=== PATIENT | female | born 1950 | race Caucasian/White ===

== ENCOUNTER 2019-11-07 09:59 | Outpatient (CLI) | payer MEDICARE, SELFPAY ==
--- NOTE | ~2019-11-07 | XR_ITS ---
XR lumbar spine 2-3V 11/07/2019 10:19 Indication: Radiculopathy. Procedure: 3 views lumbar spine Comparison: 08/12/2017 Findings: Vertebral body heights are maintained. There is disc narrowing and endplate degenerative ch eloise at L5-S1, unchanged. No evidence for spondylolysis or spondylolisthesis. There is atherosclerosis of the aorta. There is mild lower lumbar facet hypertrophy. Sacral foramen a re symmetric. Pedicles intact. Impression: 1: Stable mild-moderate lumbar spondylosis primarily involving L5-S1. Reviewed, dictated and finalized at location A. Impression: 1: Stable mild-moderate lumbar spondylosis primarily involving L5-S1.
== END 2019-11-07 10:00 | disposition home or self-care (01) ==
PROVIDERS: PCP Family Medicine
DX: M47.27 Other spondylosis with radiculopathy, lumbosacral region (principal); G89.4 Chronic pain syndrome; Z79.891 Long term (current) use of opiate analgesic; Z13.89 Encounter for screening for other disorder; Z51.81 Encounter for therapeutic drug level monitoring
CPT/HCPCS: 72100

== ENCOUNTER 2019-12-16 09:31 | Outpatient (CLI) | payer MEDICARE, SELFPAY ==
--- NOTE | 2019-12-16 11:00 | NEURO_ITS ---
Patient Number: [id number] Impression: # Complains of numbness of feet. # Distal neuropathy involving peroneal nerves. # Normal needle/EMG exam. # Clinical correlation recommended. Nerve Conduction Studies Anti Sensory Summary Table Stim Site NR Peak (ms) P-T Amp (?V) Site1 Site2 Delta-P (ms) Dist (cm) Lg (m/s) Left Sup Fibular Anti Sensory (Ant Lat Mall) 14 cm 4.8 8.6 14 cm Ant Lat Mall 4.8 16.0 33 Right Sup Fibular Anti Sensory (Ant Lat Mall) NO RESPONSE 14 cm NR 14 cm Ant Lat Mall 16.0 Left Sural Anti Sensory (Lat Mall) Calf 4.8 5.9 Calf Lat Mall 4.8 16.0 33 Right Sural Anti Sensory (Lat Mall) Calf 4.0 6.2 Calf Lat Mall 4.0 16.0 40 Motor Summary Table Stim Site NR Onset (ms) O-P Amp (mV) Site1 Site2 Delta-0 (ms) Dist (cm) Lg (m/s) Left Peroneal Motor (Vastus Med) Ankle 6.5 2.0 Popit Ankle 7.9 35.0 44 Popit 14.4 1.7 Right Peroneal Motor (Vastus Med) Ankle 6.7 0.3 Popit Ankle 9.6 39.0 41 Popit 16.3 0.4 Left Tibial Motor (Abd Ford Brev) Ankle 5.4 1.6 Knee Ankle 9.8 41.0 42 Knee 15.2 1.1 Right Tibial Motor (Abd Ford Brev) Ankle 5.5 6.1 Knee Ankle 10.4 42.0 40 Knee 15.9 3.8 F Wave Studies NR F-Lat (ms) L-R F-Lat (ms) Left Peroneal (Mrkrs) (EDB) 55.65 1.07 Right Peroneal (Mrkrs) (EDB) 56.73 1.07 Left Tibial (Mrkrs) (Abd Hallucis) 58.79 0.74 Right Tibial (Mrkrs) (Abd Hallucis) 58.05 0.74 EMG Side Muscle Nerve Root Ins Act Fibs Amp Dur Recrt Comment Right AntTibialis Dp Br Fibular L4-5 Nml Nml Nml Nml Nml Right Gastroc Tibial S1-2 Nml Nml Nml Nml Nml Right Fibularis Long Sup Br Fibular L5-S1 Nml Nml Nml Nml Nml Right Flex Dig Long Tibial L5-S2 Nml Nml Nml Nml Nml Right Ext Dig Brev Dp Br Fibular L5, S1 Nml Nml Nml Nml Nml Left AntTibialis Dp Br Fibular L4-5 Nml Nml Nml Nml Nml Left Gastroc Tibial S1-2 Nml Nml Nml Nml Nml Left Fibularis Long Sup Br Fibular L5-S1 Nml Nml Nml Nml Nml Left Flex Dig Long Tibial L5-S2 Nml Nml Nml Nml Nml Left Ext Dig Brev Dp Br Fibular L5, S1 Nml Nml Nml Nml Nml Right QuadratusFem QuadFemoris L4-5, S1 Nml Nml Nml Nml Nml Left QuadratusFem QuadFemoris L4-5, S1 Nml Nml Nml Nml Nml MTDD
== END 2019-12-16 09:32 | disposition home or self-care (01) ==
PROVIDERS: PCP Family Medicine; Visit Provider Psychiatry & Neurology Neurology
DX: R20.2 Paresthesia of skin (principal)
CPT/HCPCS: 95886; 95910

== ENCOUNTER 2019-12-30 10:35 | Outpatient (CLI) | payer MEDICARE, SELFPAY ==
--- NOTE | ~2019-12-30 | CT_ITS ---
EXAMINATION: CT sinus wo con DATE: 12/30/2019 11:16 INDICATION: Chronic sinusitis. Congestion. TECHNIQUE: Computed tomography (CT) of the paranasal sinuses was performed without contrast. Iterativ e reconstruction technique was employed. Exam dose: 385.95 mGy-cm total exam DLP. COMPARISON: 01/05/2018 CT sinuses FINDINGS: There is rightward deviation of the nasal septum. The nasal turbinates are relatively symmetrically prominent in size. Bilateral middle nasal turbinate intralamellar cell. Bilateral middle nasal turbinate derick bullosa, left greater than right. There is a diminutive completely opacified right maxillary sinus, stable since 01/05/2018. The left maxillary sinus, the ethmoid air cells and bilateral frontal and sphenoid sinuses are patent . The left ostiomeatal unit is patent. IMPRESSION: Chronic small completely opacified right maxillary sinus, stable since 01/05/2018 Rightward bowing of the nasal septum Interlamellar cell and derick bullosa of the middle nasal turbinates, more prominent on the left Reviewed, dictated and finalized at Location A. Reviewed, dictated and finalized at location A. IMPRESSION: Chronic small completely opacified right maxillary sinus, stable s joshua 01/05/2018 Rightward bowing of the nasal septum Interlamellar cell and derick bullosa of the middle nasal turbinates, more prom inent on the left
== END 2019-12-30 10:36 | disposition home or self-care (01) ==
LOC: ANHIMG 10:38
PROVIDERS: PCP Family Medicine; Visit Provider Otolaryngology
DX: J32.9 Chronic sinusitis, unspecified (principal)
CPT/HCPCS: 70486

== ENCOUNTER 2020-02-04 10:40 | Outpatient (CLI) | payer MEDICARE, SELFPAY ==
--- NOTE | 2020-02-04 10:43 | ECG_ITS ---
Measurements Intervals [place] Rate: 70 P: 40 RI: 196 QRS: -25 QRSD: 84 T: 47 QT: 403 QTc: 437 Interpretive Statements SINUS RHYTHM POSSIBLE LEFT ATRIAL ENLARGEMENT DELAYED PRECORDIAL R/S TRANSITION BASELINE ARTIFACT- I, II, III, AVR, AVL, AVF BORDERLINE ECG Electronically Signed On 02-04-2020 11:07:06 CDT by Micky Jimenez D.O.
== END 2020-02-04 10:41 | disposition home or self-care (01) ==
PROVIDERS: PCP Family Medicine; Visit Provider Otolaryngology
DX: Z01.812 Encounter for preprocedural laboratory examination (principal); I10 Essential (primary) hypertension; R94.31 Abnormal electrocardiogram [ECG] [EKG]
CPT/HCPCS: 93005

== ENCOUNTER 2020-02-07 11:38 | Emergency (ER) | payer MEDICARE, SELFPAY ==
[2020-02-07 12:07] VITALS: BP 141/74; PULSE 87; RESP 16; TEMP 36.3; O2SAT 98
[2020-02-07 12:26] LABS: Basophils Absolute Auto 0.1 K/mm3 (0.0-0.1); Eosinophils Absolute Auto 0.2 K/mm3 (0-0.3); Eosinophils Percent Auto 2.6 % (0-4.4); Hematocrit 40.3 % (37.0-47.0); Hemoglobin 13.5 g/dL (12.0-15.0); Immature Granulocyte Absolute 0.03 K/mm3 (0.00-0.031); Immature Granulocyte Percent A 0.4 % (0-0.5); Lymphocytes Absolute Auto 2.21 K/mm3 (0.9-3.2); Lymphocytes Percent Auto 31.8 % (18.3-44.2); Mean Corpuscular HGB Conc 33.5 g/dl (32-36); Mean Corpuscular Hemoglobin 30.7 pg (26-34); Mean Corpuscular Volume 91.6 fl (80-100); Mean Platelet Volume 9.2 fl (7.4-10.4); Monocytes Absolute Auto 0.6 K/mm3 (0.1-0.6); Monocytes Percent Auto 8.6 % (2.6-8.5); Neutrophils Absolute Auto 3.9 K/mm3 (1.3-6.7); Neutrophils Percent Auto 55.6 % (45.5-73.1); Platelet Count Result 235 k/mm3 (150-375); Red Cell Distribution Width 11.9 % (11.5-14.5)
[2020-02-07 12:36] LABS: Prothrombin Time 12.7 Seconds (11.1-14.7)
[2020-02-07 12:37] LABS: Partial Thromboplastin Time 26.7 SECONDS (22.3-36.8)
[2020-02-07 12:39] LABS: Alanine Aminotransferase 28 U/L (4-35); Albumin Level 4.3 g/dL (3.5-5.1); Alkaline Phosphatase 59 U/L (38-126); Anion Gap 8 mmol/L (8-16); Aspartate Amino Transferase 38 U/L (14-36); Bilirubin,Total 0.8 mg/dL (0.2-1.3); Blood Urea Nitrogen 12 mg/dL (7-17); Calcium 9.3 mg/dL (8.4-10.2); Carbon Dioxide 24 mmol/L (22-30); Chloride 104 mmol/L (98-107); Estimated CRCL calculation 68 ml/min; Estimated Glomerular Filt Rate > 60; Glucose 105 mg/dL (65-105); Potassium 4.3 mmol/L (3.4-5.0); Sodium 136 mmol/L (137-145)
[2020-02-07 13:40] VITALS: BP 136/75; PULSE 76; RESP 16; TEMP 36.7; O2SAT 98
== END 2020-02-07 16:54 | disposition left against medical advice (07) ==
LOC: ANHED 18:04
PROVIDERS: Emergency Provider Emergency Medicine; PCP Family Medicine
DX: R19.5 Other fecal abnormalities (principal)
CPT/HCPCS: 36415; 80053; 85025; 85610; 85730; 86850; 86900; 86901; 99199

== ENCOUNTER 2020-03-13 00:41 | Outpatient (CLI) | payer MEDICARE, SELFPAY ==
[2020-03-13 16:30] LABS: SARS-CoV-2 RNA PCR Negative
== END 2020-03-13 00:42 | disposition home or self-care (01) ==
LOC: ANHCOVIDDT 00:41
PROVIDERS: Otolaryngology; PCP Family Medicine; Visit Provider Internal Medicine Gastroenterology
DX: Z01.812 Encounter for preprocedural laboratory examination (principal); Z20.828 Contact with and (suspected) exposure to other viral communicable diseases
CPT/HCPCS: 87635; C9803; U0003

== ENCOUNTER 2020-03-15 00:48 | Day surgery (SDC) | payer MEDICARE, SELFPAY ==
[2020-03-08 13:45] VITALS: BMI 27.7
--- NOTE | 2020-03-15 07:38 | WPDANESEPPF ---
Anes - Initial Pre Proc Eval Procedure: Operation Date: 03/15/20 09:30 Proposed Procedures p Esophagogastroduodenoscopy - Paulino Iniguez MD Date/Time: 03/15/20 07:38 Surgeon: Paulino Iniguez MD Pre Op Diagnosis: Dysphagia Patient Data Age: 70 Gender: F Height: 1.68 m Weight: 78 kg Allergies Allergy/AdvReac Type Severity Reaction Status Date / Time Sulfa (Sulfonamide Allergy Unknown Fatigued Verified 03/15/20 08:13 Antibiotics) tetracycline Allergy Unknown Rash Verified 03/15/20 08:13 Home Medications Medication Instructions Recorded Confirmed Type clonazepam 0.5 mg tablet 0.5 mg PO TID tablet 04/13/19 03/08/20 History cyclobenzaprine 5 mg tablet 5 mg PO BID PRN tablet 04/13/19 03/08/20 History omeprazole 40 mg capsule,delayed 40 mg PO DAILY 04/13/19 03/08/20 History release duloxetine 20 mg capsule,delayed 20 mg PO QPM cap 11/18/19 03/15/20 History release sprinkle levetiracetam 750 mg tablet 750 mg PO Q12H 11/18/19 03/08/20 History magnesium 250 mg PO DAILY 02/03/20 03/08/20 History metoprolol succinate 12.5 mg PO QPM 02/03/20 03/08/20 History gabapentin 300 mg capsule 600 mg PO TID #180 cap 02/15/20 03/08/20 Rx ECG: Date of Service: 02/04/20 Procedure(s): CA 12 lead EKG Accession Number(s): [id number] cc: ~ Measurements Intervals [place] Rate: 70 P: 40 NM: 196 QRS: -25 QRSD: 84 T: 47 QT: 403 QTc: 437 Interpretive Statements SINUS RHYTHM POSSIBLE LEFT ATRIAL ENLARGEMENT DELAYED PRECORDIAL R/S TRANSITION BASELINE ARTIFACT- I, II, III, AVR, AVL, AVF BORDERLINE ECG Electronically Signed On 02-04-2020 11:07:06 CDT by Micky Jimenez D.O. Dictated By: Micky Jimenez DO 02/04/20 1113 Patient hx anesthesia problems: none Family hx anesthesia problems: none PMFSH Past Medical History Medical History (Updated 03/15/20 @ 08:22 by Paulino Iniguez MD) Cervical spondylolysis Chronic neck and back pain Depression with anxiety Diastolic dysfunction Elevated lipids Essential (primary) hypertension GERD without esophagitis Hx pulmonary embolism Irritable bowel syndrome with diarrhea Lumbar spondylosis Peripheral polyneuropathy Seizures Urinary incontinence Surgical History Surgical History No pertinent past surgical history Family History Family History Sibling Patient's sister is in good health Hypertension Mother Carcinoma of colon Patient's mother is Family history of malignant neoplasm of breast in first degree relative Father Family history of lung cancer Patient's father is Other Cerebrovascular accident Family history of malignant neoplasm Social History Social History Smoking status: Never smoker Second hand tobacco smoke exposure: No Alcohol intake: never Substance use: never Substance use type: does not use Living arrangements: [facility] Gender identity (if verbalized by the patient): Female Spiritual care concerns: No Anes - Eval Final PreProcedure Day of Procedure 03/15/20 07:38 Patient weight: overweight Heart: regular rate and rhythm Lungs: clear to auscultation and normal air movement Airway: Mallampati scale class II Neurological: alert and oriented Last oral intake: >/= 8 hours ASA classification: III Emergent: no Anesthetic plan: proceed Anesthesia type and monitoring: general GIVS Informed Consent: The patient's anesthetic plan and its attendant risks and benefits were discussed with the patient/family/PO
--- NOTE | 2020-03-15 08:20 | WPDGICN ---
Assessment and Plan Assessment and plan (1) Occult blood in stools: Code(s): R19.5 - Other fecal abnormalities Status: Acute Assessment and Plan: Patient describes black melenic stools about a month ago. That lasted for a week. Stool confirmed to be Hemoccult-positive. Plan is for EGD to assess for potential bleeding size. Further recommendations subsequently. Patient currently on omeprazole for history of acid reflux. (2) Depression with anxiety: Code(s): F41.8 - Other specified anxiety disorders Status: Acute (3) Chronic sinusitis: Code(s): J32.9 - Chronic sinusitis, unspecified Status: Acute (4) GERD without esophagitis: Code(s): K21.9 - Gastro-esophageal reflux disease without esophagitis Status: Acute Assessment and Plan: Patient with a history of acid reflux. Has a history of an esophageal web identified 1 year ago. Patient currently on omeprazole 40 mg p.o. daily this will be continued. Further recommendations after endoscopy. Patient currently has additional complaints of dysphagia suggesting potential recurrent esophageal web formation. GI Consult Note Consult date/time: 03/15/20 08:20 HPI: Yessica Nelson is a 70 year old female Seen in evaluation at the request of Dr. Finn., patient reports change in bowel habits. Had blackish stools several weeks ago. Stool was found to be Hemoccult positive. Patient presents to today for EGD. Patient does have occasional difficulty swallowing with liquids food catching in mid substernal portion of the chest. She has a past medical history of esophageal web. Patient reports a recent trial of antibiotics for sinusitis. She is concerned about ongoing GI bleeding. She reports that food will pass slowly well swallowing. Her family history is noncontributory. In the past she has been treated for anxiety. Review of Systems Review of Systems: All systems reviewed & are unremarkable except as noted in HPI and below PMFSH Past Medical History Medical History (Updated 03/15/20 @ 08:22 by Paulino Iniguez MD) Cervical spondylolysis Chronic neck and back pain Depression with anxiety Diastolic dysfunction Elevated lipids Essential (primary) hypertension GERD without esophagitis Hx pulmonary embolism Irritable bowel syndrome with diarrhea Lumbar spondylosis Peripheral polyneuropathy Seizures Urinary incontinence Surgical History Surgical History No pertinent past surgical history Family History Family History Sibling Patient's sister is in good health Hypertension Mother Carcinoma of colon Patient's mother is Family history of malignant neoplasm of breast in first degree relative Father Family history of lung cancer Patient's father is Other Cerebrovascular accident Family history of malignant neoplasm Social History Social History Smoking status: Never smoker Second hand tobacco smoke exposure: No Alcohol intake: never Substance use: never Substance use type: does not use Living arrangements: [facility] Gender identity (if verbalized by the patient): Female Spiritual care concerns: No Meds Home Medications and Allergies Home Medications Medication Instructions Recorded Confirmed Type clonazepam 0.5 mg tablet 0.5 mg PO TID tablet 04/13/19 03/08/20 History cyclobenzaprine 5 mg tablet 5 mg PO BID PRN tablet 04/13/19 03/08/20 History omeprazole 40 mg capsule,delayed 40 mg PO DAILY 04/13/19 03/08/20 History release duloxetine 20 mg capsule,delayed 20 mg PO QPM cap 11/18/19 03/15/20 History release sprinkle levetiracetam 750 mg tablet 750 mg PO Q12H 11/18/19 03/08/20 History magnesium 250 mg PO DAILY 02/03/20 03/08/20 History
[2020-03-15 08:25] VITALS: BMI 29.2
[2020-03-15] MEDS: LACTATED RINGERS 1,000 ML 150 ML IV CONT (08:51)
[2020-03-15 08:52] VITALS: BP 126/78; PULSE 72; RESP 18; TEMP 36.1; O2SAT 98
[2020-03-15 09:11] VITALS: BP 121/59; PULSE 72; RESP 16; O2SAT 97
[2020-03-15 09:21] VITALS: BP 127/71; PULSE 72; RESP 18; O2SAT 98
[2020-03-15 09:31] VITALS: BP 123/65; PULSE 70; RESP 18; O2SAT 98
== END 2020-03-15 10:03 | disposition home or self-care (01) ==
PROVIDERS: PCP Internal Medicine; Visit Provider Internal Medicine Gastroenterology
PROC: 0DJ08ZZ Inspection of Upper Intestinal Tract, Via Natural or Artificial Opening Endoscopic (ICD-10-PCS; CPT 43235; principal; 2020-03-15 09:30)
DX: R19.5 Other fecal abnormalities (principal); K21.9 Gastro-esophageal reflux disease without esophagitis; K58.0 Irritable bowel syndrome with diarrhea; I11.0 Hypertensive heart disease with heart failure; I50.30 Unspecified diastolic (congestive) heart failure; E78.5 Hyperlipidemia, unspecified; G40.909 Epilepsy, unspecified, not intractable, without status epilepticus; G62.9 Polyneuropathy, unspecified; F41.8 Other specified anxiety disorders; J32.9 Chronic sinusitis, unspecified; M47.816 Spondylosis without myelopathy or radiculopathy, lumbar region; Z86.711 Personal history of pulmonary embolism
CPT/HCPCS: 43450; 43235; J2001; J2704; J7120

== ENCOUNTER 2020-04-03 02:28 | Outpatient (CLI) | payer MEDICARE, SELFPAY ==
[2020-04-03 21:23] LABS: SARS-CoV-2 RNA PCR Negative
== END 2020-04-03 02:29 | disposition home or self-care (01) ==
LOC: ANHCOVIDDT 02:29
PROVIDERS: PCP Internal Medicine; Visit Provider Internal Medicine Gastroenterology
DX: Z01.812 Encounter for preprocedural laboratory examination (principal); Z20.828 Contact with and (suspected) exposure to other viral communicable diseases
CPT/HCPCS: 87635; C9803; U0003

== ENCOUNTER 2020-04-06 01:34 | Day surgery (SDC) | payer MEDICARE, SELFPAY ==
[2020-03-30 13:07] VITALS: BMI 28.3
[2020-04-06 07:20] VITALS: BP 147/61; PULSE 83; RESP 16; TEMP 36.2; O2SAT 97
[2020-04-06] MEDS: LACTATED RINGERS 1,000 ML 150 ML IV CONT (07:23)
--- NOTE | 2020-04-06 08:04 | WPDANESEPPF ---
Anes - Initial Pre Proc Eval Procedure: Operation Date: 04/06/20 08:30 Proposed Procedures p Colonoscopy - Paulino Iniguez MD Date/Time: 04/06/20 08:04 Surgeon: Paulino Iniguez MD Pre Op Diagnosis: Occult GI Bleed/ Melena Patient Data Age: 70 Gender: F Height: 5 ft 6 in Weight: 78.7 kg Last Vital Signs Temp 97.2 F L 04/06/20 07:20 Pulse 83 04/06/20 07:20 Resp 16 04/06/20 07:20 BP 147/61 H 04/06/20 07:20 Pulse Ox 97 04/06/20 07:20 Allergies Allergy/AdvReac Type Severity Reaction Status Date / Time tetracycline Allergy Mild Rash Verified 04/06/20 07:18 Sulfa (Sulfonamide Allergy Unknown Fatigued Verified 04/06/20 07:18 Antibiotics) Home Medications Medication Instructions Recorded Confirmed Type clonazepam 0.5 mg tablet 0.5 mg PO TID tablet 04/13/19 03/30/20 History duloxetine 20 mg capsule,delayed 20 mg PO QPM cap 11/18/19 03/30/20 History release sprinkle levetiracetam 750 mg tablet 750 mg PO Q12H 11/18/19 03/30/20 History magnesium 250 mg PO DAILY 02/03/20 03/30/20 History metoprolol succinate 12.5 mg PO BID 02/03/20 03/30/20 History gabapentin 300 mg capsule 600 mg PO TID #180 cap 02/15/20 03/30/20 Rx cyclobenzaprine 5 mg tablet 5 mg PO TID PRN tablet 03/27/20 03/30/20 History omeprazole 40 mg capsule,delayed 40 mg PO DAILY #90 cap 03/30/20 03/30/20 Rx release rosuvastatin 10 mg tablet 10 mg PO DAILY #90 tablet 03/31/20 04/06/20 Rx Patient hx anesthesia problems: none Family hx anesthesia problems: none PMFSH Past Medical History Medical History (Updated 03/27/20 @ 15:25 by Quintin Tyson MD) Cervical spondylolysis Chronic neck and back pain Chronic obstructive pulmonary disease, unspecified Congestive heart failure, unspecified Crohn's disease, unspecified, without complications Depression with anxiety Diastolic dysfunction Elevated lipids Essential (primary) hypertension GERD without esophagitis Hx pulmonary embolism Hypertrophy of both inferior nasal turbinates Irritable bowel syndrome with diarrhea Lumbar spondylosis Nasal obstruction Nasal septal deviation Overweight (12/13/15) Oxygen dependent Peripheral polyneuropathy Seizures Urinary incontinence Surgical History Surgical History No pertinent past surgical history Family History Family History Sibling Patient's sister is in good health Hypertension Mother Carcinoma of colon Patient's mother is Family history of malignant neoplasm of breast in first degree relative Father Family history of lung cancer Patient's father is Other Cerebrovascular accident Family history of malignant neoplasm Social History Social History Smoking status: Unknown if ever smoked Second hand tobacco smoke exposure: No Alcohol intake: never Substance use: unknown Substance use type: unknown Gender identity (if verbalized by the patient): Female Spiritual care concerns: No Anes - Eval Final PreProcedure Day of Procedure 04/06/20 08:04 Patient weight: normal Heart: regular rate and rhythm Lungs: clear to auscultation Airway: Mallampati scale class III Neurological: alert and oriented Last oral intake: >/= 8 hours ASA classification: III Emergent: no Anesthetic plan: proceed Anesthesia type and monitoring: general GIVS and standard monitoring Informed Consent: The patient's anesthetic plan and its attendant risks and benefits were discussed with the patient/family/POA. Questions were solicited and answers provided to the satisfaction of the patient/family/POA.
--- NOTE | 2020-04-06 08:18 | WPDGICN ---
Assessment and Plan Assessment and plan (1) Occult blood in stools: Code(s): R19.5 - Other fecal abnormalities Status: Acute Assessment and Plan: Patient with recent occult positive stool. EGD was unremarkable. Plan is to proceed with colonoscopy at this time. Further recommendations will be given after endoscopy. (2) GERD without esophagitis: Code(s): K21.9 - Gastro-esophageal reflux disease without esophagitis Status: Acute GI Consult Note Consult date/time: 04/06/20 08:18 HPI: Yessica Nelson is a 70 year old female Presents for colonoscopy. Patient has a history of anxiety. Recently passed black melenic stools. These were confirmed be Hemoccult-positive. An EGD was recently performed which was unremarkable. Because of a prior history of esophageal web her esophagus was dilated empirically. Patient presents today for further evaluation of occult positive dark stools. Patient denies any abdominal pain. She has noticed no visible blood in her stools. She states in the past she has had some bright red blood associated with hard stools. Review of Systems Review of Systems: All systems reviewed & are unremarkable except as noted in HPI and below PMFSH Past Medical History Medical History (Updated 03/27/20 @ 15:25 by Quintin Tyson MD) Cervical spondylolysis Chronic neck and back pain Chronic obstructive pulmonary disease, unspecified Congestive heart failure, unspecified Crohn's disease, unspecified, without complications Depression with anxiety Diastolic dysfunction Elevated lipids Essential (primary) hypertension GERD without esophagitis Hx pulmonary embolism Hypertrophy of both inferior nasal turbinates Irritable bowel syndrome with diarrhea Lumbar spondylosis Nasal obstruction Nasal septal deviation Overweight (12/13/15) Oxygen dependent Peripheral polyneuropathy Seizures Urinary incontinence Surgical History Surgical History No pertinent past surgical history Family History Family History Sibling Patient's sister is in good health Hypertension Mother Carcinoma of colon Patient's mother is Family history of malignant neoplasm of breast in first degree relative Father Family history of lung cancer Patient's father is Other Cerebrovascular accident Family history of malignant neoplasm Social History Social History Smoking status: Unknown if ever smoked Second hand tobacco smoke exposure: No Alcohol intake: never Substance use: unknown Substance use type: unknown Gender identity (if verbalized by the patient): Female Spiritual care concerns: No Meds Home Medications and Allergies Home Medications Medication Instructions Recorded Confirmed Type clonazepam 0.5 mg tablet 0.5 mg PO TID tablet 04/13/19 03/30/20 History duloxetine 20 mg capsule,delayed 20 mg PO QPM cap 11/18/19 03/30/20 History release sprinkle levetiracetam 750 mg tablet 750 mg PO Q12H 11/18/19 03/30/20 History magnesium 250 mg PO DAILY 02/03/20 03/30/20 History metoprolol succinate 12.5 mg PO BID 02/03/20 03/30/20 History gabapentin 300 mg capsule 600 mg PO TID #180 cap 02/15/20 03/30/20 Rx cyclobenzaprine 5 mg tablet 5 mg PO TID PRN tablet 03/27/20 03/30/20 History omeprazole 40 mg capsule,delayed 40 mg PO DAILY #90 cap 03/30/20 03/30/20 Rx release rosuvastatin 10 mg tablet 10 mg PO DAILY #90 tablet 03/31/20 04/06/20 Rx Allergies Allergy/AdvReac Type Severity Reaction Status Date / Time tetracycline Allergy Mild Rash Verified 04/06/20 07:18 Sulfa (Sulfonamide Allergy Unknown Fatigued Verified 04/06/20 07:18 Antibiotics) Vital Signs Vital Signs - 24 hr 04/06/20 07:20 Temperature 97.2 F L Pulse Rate 83 Respirat
[2020-04-06 08:47] VITALS: BP 118/56; PULSE 61; RESP 16; O2SAT 100
[2020-04-06 08:57] VITALS: BP 118/58; PULSE 65; RESP 16; O2SAT 100
[2020-04-06 09:07] VITALS: BP 135/70; PULSE 61; RESP 16; O2SAT 99
== END 2020-04-06 09:25 | disposition home or self-care (01) ==
PROVIDERS: PCP Internal Medicine; Visit Provider Internal Medicine Gastroenterology
PROC: 0DJD8ZZ Inspection of Lower Intestinal Tract, Via Natural or Artificial Opening Endoscopic (ICD-10-PCS; CPT 45378; principal; 2020-04-06 08:30)
DX: R19.5 Other fecal abnormalities (principal); D12.8 Benign neoplasm of rectum; K57.30 Diverticulosis of large intestine without perforation or abscess without bleeding; K64.8 Other hemorrhoids; K21.9 Gastro-esophageal reflux disease without esophagitis; J44.9 Chronic obstructive pulmonary disease, unspecified; I11.0 Hypertensive heart disease with heart failure; I50.9 Heart failure, unspecified; E78.5 Hyperlipidemia, unspecified; K50.90 Crohn's disease, unspecified, without complications; F41.8 Other specified anxiety disorders; G62.9 Polyneuropathy, unspecified; M47.812 Spondylosis without myelopathy or radiculopathy, cervical region; G40.909 Epilepsy, unspecified, not intractable, without status epilepticus; Z86.711 Personal history of pulmonary embolism; Z99.81 Dependence on supplemental oxygen
CPT/HCPCS: 45385; 88305; J2704; J7120

== ENCOUNTER → 2020-08-03 11:08 | Outpatient (CLI) | payer MEDICARE, SELFPAY ==
--- NOTE | ~2020-08-03 | MR_ITS ---
EXAMINATION: MR lumbar spine wo con DATE: 08/03/2020 11:59 INDICATION: Low back pain. TECHNIQUE: Magnetic resonance imaging (MRI) of the lumbar spine was performed without intravenous con trast. Sequences included sagittal T2-weighted FSE, sagittal T2-weighted FS FSE, sagittal T1-weighted FSE, and axial T2-weighted FSE. COMPARISON: Lumbar spine MRI 05/09/2018 FINDINGS: There is 3 mm retrolisthesis of L5 on S1. Vertebral body heights are normal. There is sever lonnie decreased disc height at L5-S1 with endplate remodeling. The distal spinal cord signal intensity is normal. The conus medullaris is at L1-L2. The following disc levels are specifically discussed: L1-L2: The disc is bulging. There is mild bilateral facet joint osteoarthritis. There is mild left ne ural foraminal stenosis. There is mild central canal stenosis. L2-L3: The disc is bulging. There is moderate bilateral facet joint osteoarthritis. There is mild maldonado ateral neural foraminal stenosis. There is mild central canal stenosis. L3-L4: The disc is bulging and has an annular fissure. There is severe bilateral facet joint osteoart hritis. There is mild bilateral neural foraminal stenosis. There is mild central canal stenosis. L4-L5: The disc is bulging and has an annular fissure. There is moderate bilateral facet joint osteoa rthritis. There is mild bilateral neural foraminal stenosis. There is mild central canal stenosis. L5-S1: The disc is bulging with superimposed large right central extrusion with mass effect on the bi lateral S1 nerve roots in the lateral recesses. There is mild bilateral facet joint osteoarthritis. T here is mild bilateral neural foraminal stenosis. There is mild central canal stenosis. IMPRESSION: 1. Severe lower lumbar spondylosis, stable from 05/09/2018. Reviewed, dictated and finalized at location A.
== END ==
PROVIDERS: PCP Emergency Medicine; Visit Provider Physical Medicine & Rehabilitation Pain Medicine
DX: R51.9 Headache, unspecified (principal); M51.9 Unspecified thoracic, thoracolumbar and lumbosacral intervertebral disc disorder; M47.896 Other spondylosis, lumbar region
CPT/HCPCS: 72148

== ENCOUNTER → 2020-11-02 13:19 | Outpatient (CLI) | payer MEDICARE, SELFPAY ==
--- NOTE | ~2020-11-02 | XR_ITS ---
XR ankle LT min 3V DATE: 11/02/2020 13:52 INDICATION: Acute left ankle pain TECHNIQUE: 4 views COMPARISON: 10/26/2016 left ankle FINDINGS: Posterior tibial artery calcification. Diffuse osteopenia. No fracture or dislocation of the ankle or disruption of the ankle mortise. There is linear periosteal reaction along the mid and distal tibial shaft, possibly due to venous ins ufficiency or pulmonary osteoarthropathy. IMPRESSION: Diffuse osteopenia Mild linear periosteal reaction of the mid and distal tibial shaft; diffusion diagnosis includes veno us insufficiency, pulmonary osteoarthropathy No recent fracture or dislocation Reviewed, dictated and finalized at location A. IMPRESSION: Diffuse osteopenia Mild linear periosteal reaction of the mid and distal tibial shaft; diffusion d iagnosis includes venous insufficiency, pulmonary osteoarthropathy No recent fracture or dislocation
== END ==
PROVIDERS: PCP Internal Medicine; Visit Provider Internal Medicine
DX: M25.572 Pain in left ankle and joints of left foot (principal)
CPT/HCPCS: 73610

== ENCOUNTER → 2020-11-17 09:57 | Outpatient (CLI) | payer MEDICARE, SELFPAY ==
--- NOTE | ~2020-11-17 | CT_ITS ---
EXAMINATION: CT thoracic spine wo chon EXAM DATE: 11/17/2020 10:17 INDICATION: Thoracic back pain. TECHNIQUE: Spiral CT thoracic spine was performed without contrast. Axial, coronal and sagittal im ages were reviewed. The dose-length product (DLP) for this examination was 621.70 mGy-cm. The expos ure was tailored according to patient size (auto mA exposure control), and iterative reconstruction ( ASIR) was used as additional dose reduction technique. There is no prior study for comparison. FINDINGS: There is mild mid thoracic dextroscoliosis. There is mild to moderate diffuse mid and lower thoracic disc disease. The vertebral bodies are aligned in the AP dimension. There are no acute frac tures identified. Thoracic central canal widely patent. Evidence of mild to moderate bilateral neura l foraminal stenosis at T9-10, the most narrowed thoracic levels. There is mild to moderate diffuse t horacic facet arthropathy. There are no osteoblastic or osteolytic lesions identified. Paraspinal sof t tissue is unremarkable. IMPRESSION: 1. Mild to moderate mid and lower thoracic spondylosis. 2. Mild mid thoracic dextroscoliosis. 3. No acute findings. Reviewed, dictated and finalized at location A.
== END ==
PROVIDERS: PCP Internal Medicine; Visit Provider Physical Medicine & Rehabilitation Pain Medicine
DX: M47.814 Spondylosis without myelopathy or radiculopathy, thoracic region (principal); M41.9 Scoliosis, unspecified
CPT/HCPCS: 72128

== ENCOUNTER 2021-02-26 08:50 | Outpatient (CLI) | payer MEDICARE, SELFPAY ==
--- NOTE | 2021-02-26 09:00 | ECG_ITS ---
Measurements Intervals [place] Rate: 76 P: 43 UT: 186 QRS: -17 QRSD: 87 T: 45 QT: 397 QTc: 448 Interpretive Statements SINUS RHYTHM POSSIBLE LEFT ATRIAL ENLARGEMENT INCOMPLETE RIGHT BUNDLE BRANCH BLOCK LOW QRS VOLTAGE IN PRECORDIAL LEADS POOR R WAVE PROGRESSION, ANTERIOR LEADS BORDERLINE ECG Electronically Signed On 02-26-2021 14:31:29 CDT by Micky Jimenez D.O.
== END 2021-02-26 08:51 | disposition home or self-care (01) ==
LOC: ANHSURGERY 08:56
PROVIDERS: PCP Internal Medicine; Visit Provider Otolaryngology
DX: Z01.810 Encounter for preprocedural cardiovascular examination (principal); I10 Essential (primary) hypertension; I45.10 Unspecified right bundle-branch block
CPT/HCPCS: 93005

== ENCOUNTER 2021-03-02 00:16 | Day surgery (SDC) | payer MEDICARE, SELFPAY ==
[2021-02-19 13:24] VITALS: BMI 29.2
--- NOTE | 2021-03-01 08:02 | PM.IMHP ---
H&P: HPI History of Present Illness Date/Time: 03/01/21 08:02 Chief Complaint: septal deviation inferior turbinate hypertrophy nasal obstruction nasal congestion left-sided derick bullosa right-sided silent sinus syndrome /chronic maxillary sinusitis Narrative: patient presents for planned surgical procedures. No change in symptoms no change in history Review of Systems Constitutional: Constitutional: Denies fatigue, Denies fever(s) and Denies lethargy Eyes: Eyes: Denies blurry vision and Denies change in vision ENT: Reports as per HPI Cardiovascular: Cardiovascular: Denies chest pain Respiratory: Respiratory: Denies cough Endocrine: Endocrine: Denies fatigue Hematologic/Lymphatic: Hematologic/Lymphatic: Denies easy bleeding, Denies easy bruising and Denies lymphadenopathy Allergic/Immunologic: Allergic/Immunologic: Denies seasonal rhinorrhea [facility] Past Medical History Medical History Cervical spondylolysis Chronic neck and back pain Chronic obstructive pulmonary disease, unspecified Congestive heart failure, unspecified Crohn's disease, unspecified, without complications Depression with anxiety Diastolic dysfunction Elevated lipids Essential (primary) hypertension GERD without esophagitis Hx pulmonary embolism Hypertrophy of both inferior nasal turbinates Irritable bowel syndrome with diarrhea Lumbar spondylosis Nasal obstruction Nasal septal deviation Overweight (12/13/15) Oxygen dependent Peripheral polyneuropathy Seizures Urinary incontinence Surgical History Surgical History No pertinent past surgical history Family History Family History Sibling Patient's sister is in good health Hypertension Mother Carcinoma of colon Patient's mother is Family history of malignant neoplasm of breast in first degree relative Father Family history of lung cancer Patient's father is Other Cerebrovascular accident Family history of malignant neoplasm Social History Social History Smoking status: Never smoker Second hand tobacco smoke exposure: No Alcohol intake: never Substance use: never Additional living arrangements comments: PT HAS ARRANGED FOR HEALTH CARE AGENCY PERSON TO STAY WITH HER AFTER SURG Gender identity (if verbalized by the patient): Female Spiritual care concerns: No Meds Home Medications and Allergies Home Medications Medication Instructions Recorded Confirmed Type omeprazole 40 mg capsule,delayed 40 mg PO DAILY #90 cap 03/30/20 02/19/21 Rx release gabapentin 300 mg capsule 600 mg PO TID #540 cap 05/01/20 02/19/21 Rx duloxetine 20 mg capsule,delayed 30 mg PO QAM cap 10/26/20 02/19/21 History release sprinkle losartan 25 mg tablet 25 mg PO QPM tablet 10/26/20 02/19/21 History metoprolol succinate 25 mg 25 mg PO QAM tablet 10/26/20 02/19/21 History tablet,extended release 24 hr tizanidine 4 mg capsule 4 mg PO QPM 10/26/20 02/19/21 History azelastine 137 mcg (0.1 %) nasal 1 spray INTRANASAL Q12H #30 ml 01/23/21 02/19/21 Rx spray aerosol acetaminophen [Tylenol] 650 mg PO QAM 02/19/21 02/19/21 History aspirin 1,000 mg PO Q6H PRN 02/19/21 02/19/21 History diphenhydramine-acetaminophen 2 tablet PO HS PRN 02/19/21 02/19/21 History [Tylenol PM Extra Strength] ergocalciferol (vitamin D2) 1,250 mcg PO WEEKLY 02/19/21 02/19/21 History amoxicillin 875 mg-potassium 1 tablet PO BID #14 tablet 02/22/21 02/22/21 Rx clavulanate 125 mg tablet clonazepam 0.5 mg tablet 0.5 mg PO TID #270 tablet 02/26/21 Rx levetiracetam 500 mg tablet See Rx Instructions .ROUTE 02/26/21 Rx .COMPLEX #180 tablet Allergies Allergy/AdvReac Type Severity Reaction Status Date / Time tetracycline Allergy Mild Rash Verified
[2021-03-02] VITALS (8 sets, daily range): BP systolic 121–148; BP diastolic 57–66; PULSE 71–76; RESP 8–20; TEMP 36.3–36.6; O2SAT 97–100; BMI 30.3
--- NOTE | 2021-03-02 07:09 | WPDHPUPDATE1 ---
History and Physical Update Update Date/Time: 03/02/21 07:09 History and Physical has been reviewed, including an updated exam of the patient. There are NO changes in the patient's condition. Risks, benefits, and alternatives have been discussed and questions answered. Patient agrees to proceed with procedure.
--- NOTE | 2021-03-02 09:01 | WPDANESEPPF ---
Anes - Initial Pre Proc Eval Procedure: Operation Date: 03/02/21 09:45 Proposed Procedures p Image Guided Bilateral Inferior Turbinectomy, Right Maxillary Antrostomy, Left Resection Maria C Bullosa, - Shekhar Gustafson MD s Septoplasty - Shekhar Gustafson MD Date/Time: 03/02/21 09:01 Surgeon: Shekhar Gustafson MD Pre Op Diagnosis: septal deviations, chronic sinusitis Patient Data Age: 71 Gender: F Height: 1.68 m Weight: 82 kg Allergies Allergy/AdvReac Type Severity Reaction Status Date / Time tetracycline Allergy Mild Rash Verified 02/19/21 13:10 Sulfa (Sulfonamide AdvReac Unknown Fatigued Verified 02/19/21 13:10 Antibiotics) evolocumab AdvReac LEG Verified 02/19/21 13:12 [From Repatha Pushtronex] CRAMPS, PAIN Zzmggur-FSM-DfJ Reductase AdvReac LEG Verified 02/19/21 13:12 Inhibitor CRAMPS/PAIN [Niutaps-Wng-Zvr Reductase Inhibitor] Home Medications Medication Instructions Recorded Confirmed Type omeprazole 40 mg capsule,delayed 40 mg PO DAILY #90 cap 03/30/20 02/19/21 Rx release gabapentin 300 mg capsule 600 mg PO TID #540 cap 05/01/20 02/19/21 Rx duloxetine 20 mg capsule,delayed 30 mg PO QAM cap 10/26/20 02/19/21 History release sprinkle losartan 25 mg tablet 25 mg PO QPM tablet 10/26/20 02/19/21 History metoprolol succinate 25 mg 25 mg PO QAM tablet 10/26/20 02/19/21 History tablet,extended release 24 hr tizanidine 4 mg capsule 4 mg PO QPM 10/26/20 02/19/21 History azelastine 137 mcg (0.1 %) nasal 1 spray INTRANASAL Q12H #30 ml 01/23/21 02/19/21 Rx spray aerosol acetaminophen [Tylenol] 650 mg PO QAM 02/19/21 02/19/21 History aspirin 1,000 mg PO Q6H PRN 02/19/21 02/19/21 History diphenhydramine-acetaminophen 2 tablet PO HS PRN 02/19/21 02/19/21 History [Tylenol PM Extra Strength] ergocalciferol (vitamin D2) 1,250 mcg PO WEEKLY 02/19/21 02/19/21 History amoxicillin 875 mg-potassium 1 tablet PO BID #14 tablet 02/22/21 02/22/21 Rx clavulanate 125 mg tablet clonazepam 0.5 mg tablet 0.5 mg PO TID #270 tablet 02/26/21 Rx levetiracetam 500 mg tablet See Rx Instructions .ROUTE 02/26/21 Rx .COMPLEX #180 tablet Patient hx anesthesia problems: none Family hx anesthesia problems: none Results Review: All pre-operative results and documents have been reviewed as part of the pre-operative evaluation. [facility] Past Medical History Medical History Cervical spondylolysis Chronic neck and back pain Chronic obstructive pulmonary disease, unspecified Congestive heart failure, unspecified Crohn's disease, unspecified, without complications Depression with anxiety Diastolic dysfunction Elevated lipids Essential (primary) hypertension GERD without esophagitis Hx pulmonary embolism Hypertrophy of both inferior nasal turbinates Irritable bowel syndrome with diarrhea Lumbar spondylosis Nasal obstruction Nasal septal deviation Overweight (12/13/15) Oxygen dependent Peripheral polyneuropathy Seizures Urinary incontinence Surgical History Surgical History No pertinent past surgical history Family History Family History Sibling Patient's sister is in good health Hypertension Mother Carcinoma of colon Patient's mother is Family history of malignant neoplasm of breast in first degree relative Father Family history of lung cancer Patient's father is Other Cerebrovascular accident Family history of malignant neoplasm Social History Social History Smoking status: Never smoker Second hand tobacco smoke exposure: No Alcohol intake: never Substance use: never Living arrangements: assisted living Additional living arrangements comments: PT HAS ARRANGED FOR HEALTH CARE AGENCY PERSON TO STAY WITH HER AFTER SURG
[2021-03-02] MEDS: LACTATED RINGERS 1,000 ML 30 ML IV CONT (09:07)
[2021-03-02] MEDS: ACETAMINOPHEN 500 MG TABLET 1000 MG PO (09:18)
[2021-03-02] MEDS: ceFAZolin 2 GM/D5W 50 ML 2 GM/50 ML BAG IVPB (09:24)
[2021-03-02] MEDS: OXYMETAZOLINE HCL 0.05% NAS 15 ML BTL (*BKC) 1 SPRAY XX (10:16)
[2021-03-02] MEDS: LIDO 1%/EPINEPHRINE 1:100,000 50 ML VIAL 10 ML INFILTRATE (10:18)
--- NOTE | 2021-03-02 11:19 | W.PM.PROC2 ---
Procedure Note - Detailed Date of Procedure 03/02/21 Pre-op Diagnosis septal deviations, chronic sinusitis, right silent sinus syndrome, right chronic maxillary sinusitis, inferior turbinate hypertrophy, septal deviation, nasal obstruction, left derick bullosa Post-op Diagnosis same Procedure Performed Image guided right maxillary antrostomy endoscopic assisted septoplasty inferior turbinate submucosal resection with outfracture left-sided resection of derick bullosa Surgeon Shekhar Gustafson MD Customer Service Associate None Anesthesia general Indications See above Findings See procedure note, most significant finding right-sided purulence was and significant mucus in the right silent maxillary sinus Description of Procedure The patient was correctly identified and consent verified in the preoperative holding area. The patient was then brought to the operating room and a time-out performed. General anesthesia was induced and endotracheal tube was secured the patient's airway and taped to the left lower lip. Image guidance was initiated. Time-out performed. Afrin-soaked pledgets placed in bilateral nasal passages and allowed to sit for 5 minutes then removed patient prepped and draped for the aforementioned procedure 2nd time-out performed. You degree endoscope utilized along with image guidance to identify the aforementioned structures with findings as well as the subsequent findings. The patient had very obvious right-sided septal deviation inferior turbinate hypertrophy widened left middle turbinate and very sunken and uncinate on the right side. Local 1 cc injected of 1% 1 1% lidocaine with 1 100,000 parts epinephrine into the left anterior middle turbinate. Straight through cut sickle blade as well as microdebrider with quad cut blade utilized to perform resection of derick bleeding was excellent. Local injected total of 8 cc of the same formula and the submucoperichondrial plane the bilateral septum and inferior turbinates. Jose incision made on the left mucoperichondrial flap on the septum elevated with 7 Maori suction septum crossed over using caudal right-sided mucoperichondrial flap elevated with no perforation. Deviated septum removed with the blade Glenroy Brunnerton forceps well as Emiliana forceps. She had. The septum was very straight following septoplasty. Right-sided maxillary sinus entered with double ball tip probe following confirmation with image guidance. Backbiter straight through cut microdebrider utilized to complete a very wide right maxillary antrostomy purulence and mucus were noted in it. Hemostasis was excellent. Afrin-soaked pledgets were inserted the bilateral middle meati I for 5 minutes and then removed. Inferior turbinates were entered anteriorly using the 2 mm inferior turbinate blade and debrided the submucoperichondrial plate without perforation except the anterior necessary 1. They were then outfractured using the [place] elevator. Bilateral nasal passages were suctioned the posterior choana. Hemostasis was excellent. David incision closed with 3 interrupted 5 0 fast gut sutures. Santiago splints placed bilaterally after being trimmed and sutured anteriorly using a 3-0 nylon mattress suture. This marked end the procedure. Care the patient was turned over to Anesthesiology. Total blood loss 20 cc. I performed all dictated portions of the procedure. There were no immediate complications. Implants Santiago splints Estimated Blood Loss 20 Drains No Packing No Pathology none sent Complications No immediate complications Condition stable Disposition PACU
== END 2021-03-02 13:05 | disposition home or self-care (01) ==
PROVIDERS: PCP Internal Medicine; Visit Provider Otolaryngology
PROC: (CPT 30520; principal; 2021-03-02 09:45)
PROC: (CPT 30520; 2021-03-02 09:45)
DX: J34.2 Deviated nasal septum (principal); J32.9 Chronic sinusitis, unspecified; J34.89 Other specified disorders of nose and nasal sinuses; J32.0 Chronic maxillary sinusitis; J34.3 Hypertrophy of nasal turbinates; Z79.82 Long term (current) use of aspirin; J44.9 Chronic obstructive pulmonary disease, unspecified; M47.812 Spondylosis without myelopathy or radiculopathy, cervical region; K50.90 Crohn's disease, unspecified, without complications; F41.8 Other specified anxiety disorders; I10 Essential (primary) hypertension; K21.9 Gastro-esophageal reflux disease without esophagitis; Z86.711 Personal history of pulmonary embolism; M47.816 Spondylosis without myelopathy or radiculopathy, lumbar region; G62.9 Polyneuropathy, unspecified; R32 Unspecified urinary incontinence; E66.9 Obesity, unspecified; Z68.30 Body mass index [BMI] 30.0-30.9, adult
CPT/HCPCS: 30520; 30140; 31240; 61782; A9270; J0330; J0690; J1100; J2250; J2405; J3010; J7120

== ENCOUNTER → 2021-06-16 11:28 | Outpatient (CLI) | payer MEDICARE, SELFPAY ==
--- NOTE | ~2021-06-16 | MR_ITS ---
EXAMINATION: MR lumbar spine wo con DATE: 06/16/2021 12:31 INDICATION: Back pain or radiculopathy greater than 6 weeks. Degeneration of lumbar intervertebral di sc. TECHNIQUE: Magnetic resonance imaging (MRI) of the lumbar spine was performed without intravenous con trast. Sequences included sagittal T2-weighted FSE, sagittal T2-weighted FS FSE, sagittal T1-weighted FSE, and axial T2-weighted FSE. COMPARISON: Lumbar spine MRI 08/03/2020 FINDINGS: There is 3 mm retrolisthesis of L5 on S1. Vertebral body heights are normal. There is sever lonnie decreased disc height at L5-S1 with endplate remodeling. The distal spinal cord signal intensity is normal. The conus medullaris is at L2. The following disc levels are specifically discussed: L1-L2: The disc is bulging. There is moderate bilateral facet joint osteoarthritis. There is mild lef t neural foraminal stenosis. There is mild central canal stenosis. L2-L3: The disc is bulging and has an annular fissure. There is moderate right and severe left facet joint osteoarthritis. There is mild bilateral neural foraminal stenosis. There is mild central canal stenosis. L3-L4: The disc is bulging. There is moderate right and severe left facet joint osteoarthritis. There is mild bilateral neural foraminal stenosis. There is mild central canal stenosis. L4-L5: The disc is bulging and has an annular fissure. There is moderate right and severe left facet joint osteoarthritis. There is mild bilateral neural foraminal stenosis. There is mild central canal stenosis. L5-S1: The disc is bulging with superimposed extrusion from the right foraminal zone to the left suba rticular zone. There is mild bilateral facet joint osteoarthritis. There is moderate and mild left ne ural foraminal stenosis. There is mild central canal stenosis. There is severe stenosis of right late ral recess and moderate stenosis of left lateral recess. IMPRESSION: 1. Severe lower lumbar spondylosis, stable from 08/03/2020. Reviewed, dictated and finalized at location A. [facility] [employer]
== END ==
PROVIDERS: PCP Family Medicine; Visit Provider Family Medicine
DX: M51.36 Other intervertebral disc degeneration, lumbar region (principal); M47.896 Other spondylosis, lumbar region
CPT/HCPCS: 72148

== ENCOUNTER 2021-07-10 12:20 | Outpatient (CLI) | payer MEDICARE, SELFPAY ==
--- NOTE | 2021-07-17 10:11 | WPDNEUROLOGY ---
Neurology EEG Report General Information Date of Study: 07/10/21 TEST eeg DIAGNOSIS Seizures CONDITION OF RECORDING awake drowsy and sleep EEG NUMBER [id number] CLINICAL HISTORY patient reported she started having seizure at the age of 3 years. Were very well controlled up until recently. She had a petite Meraz last week. First 1 in 4 to 5 years. EEG DESCRIPTION Basic resting occipital frequency consists of large amount of well-organized low to medium voltage 9 to 11 hertz per 2nd alpha admixed with low-voltage 15 to 18 hertz per 2nd beta . Low-voltage beta activity seen diffusely admixed with waxing and waning posterior alpha rhythm during drowsiness. Bilateral symmetrical sleep activity seen during sleep. Hyperventilation not done. Photic stimulation produced normal drive. Non paroxysmal. Nonfocal. Nonlateralizing. IMPRESSION Normal record
== END 2021-07-10 12:21 | disposition home or self-care (01) ==
PROVIDERS: PCP Family Medicine; Visit Provider Psychiatry & Neurology Neurology
DX: G40.509 Epileptic seizures related to external causes, not intractable, without status epilepticus (principal)
CPT/HCPCS: 95816

== ENCOUNTER 2021-10-16 09:32 | Outpatient (CLI) | payer MEDICARE, SELFPAY ==
--- NOTE | 2021-10-16 11:00 | NEURO_ITS ---
Impression: # Complains of pain in lower extremities, right more than left. # Absent nerve responses in the right lower extremity with neurogenic needle/EMG exam. # Normal nerve conduction study with normal needle/EMG exam in the left lower extremity. # Clinical correlation recommended; Possible right sciatic neuropathy. Nerve Conduction Studies Anti Sensory Summary Table Stim Site NR Peak (ms) P-T Amp (?V) Site1 Site2 Delta-P (ms) Dist (cm) Lg (m/s) Left Sup Fibular Anti Sensory (Ant Lat Mall) 14 cm 3.8 20.7 14 cm Ant Lat Mall 3.8 16.0 42 Right Sup Fibular Anti Sensory (Ant Lat Mall) NO RESPONSE 14 cm NR 14 cm Ant Lat Mall 16.0 Left Sural Anti Sensory (Lat Mall) Calf 4.0 17.8 Calf Lat Mall 4.0 16.0 40 Right Sural Anti Sensory (Lat Mall) NO RESPONSE Calf NR Calf Lat Mall 16.0 Motor Summary Table Stim Site NR Onset (ms) O-P Amp (mV) Site1 Site2 Delta-0 (ms) Dist (cm) Lg (m/s) Left Peroneal Motor (Vastus Med) Ankle 4.8 2.8 Popit Ankle 9.0 41.0 46 Popit 13.8 2.2 Right Peroneal Motor (Vastus Med) NO RESPONSE Ankle NR Popit Ankle 0.0 Popit NR Left Tibial Motor (Abd Ford Brev) Ankle 4.8 1.9 Knee Ankle 10.0 42.0 42 Knee 14.8 0.9 Right Tibial Motor (Abd Ford Brev) NO RESPONSE Ankle NR Knee NR F Wave Studies NR F-Lat (ms) L-R F-Lat (ms) Left Peroneal (Mrkrs) (EDB) 55.78 Right Peroneal (Mrkrs) (EDB) DISPERSED RESPONSE NR Left Tibial (Mrkrs) (Abd Hallucis) 56.08 3.74 Right Tibial (Mrkrs) (Abd Hallucis) 59.82 3.74 EMG Side Muscle Nerve Root Ins Act Fibs Amp Dur Recrt Comment Right AntTibialis Dp Br Fibular L4-5 Nml Nml Nml >12ms Reduced Right Gastroc Tibial S1-2 Nml Nml Nml >12ms Reduced Right Fibularis Long Sup Br Fibular L5-S1 Nml Nml Nml >12ms Reduced Right Flex Dig Long Tibial L5-S2 Nml Nml Nml >12ms Reduced Right Ext Dig Brev Dp Br Fibular L5, S1 Nml Nml Nml >12ms Reduced Left AntTibialis Dp Br Fibular L4-5 Nml Nml Nml >12ms Reduced Left Gastroc Tibial S1-2 Nml Nml Nml >12ms Reduced Left Fibularis Long Sup Br Fibular L5-S1 Nml Nml Nml >12ms Reduced Left Flex Dig Long Tibial L5-S2 Nml Nml Nml >12ms Reduced Left Ext Dig Brev Dp Br Fibular L5, S1 Nml Nml Nml >12ms Reduced Right QuadratusFem QuadFemoris L4-5, S1 Nml Nml Nml Nml Nml Left QuadratusFem QuadFemoris L4-5, S1 Nml Nml Nml Nml Nml MTDD
== END 2021-10-16 09:33 | disposition home or self-care (01) ==
LOC: ANHNEURO 09:36
PROVIDERS: PCP Family Medicine; Visit Provider Psychiatry & Neurology Neurology
DX: M79.606 Pain in leg, unspecified (principal); R94.131 Abnormal electromyogram [EMG]
CPT/HCPCS: 95886; 95910

== ENCOUNTER 2022-05-09 10:48 | Emergency (ER) | payer MEDICARE, SELFPAY ==
--- NOTE | ~2022-05-09 | CT_ITS ---
CT Abdomen and Pelvis with contrast. History: Abdominal pain. Spiral CT of the abdomen and pelvis was performed after the administration of intravenous contrast. 1 00 cc of Omnipaque 350 was administered intravenously without complication. Dose reduction technique was used on this scan by utilizing automated exposure control and iterative reconstruction technique. The dose-length product (DLP) was 1050.35 mGy-cm. COMPARISON: 08/13/2018 Findings: Scans through the lung bases demonstrate mild atelectatic change. The liver, spleen, pancreas, gallbladder, adrenals and kidneys are within normal limits. No evidence of aortic aneurysm. No lymphadenopathy is seen. There is no evidence of bowel obstruction. There is no evidence to suggest acute appendicitis or dive rticulitis. Images through the pelvis were performed. Urinary bladder unremarkable. No adnexal mass evident. No a scites. No ascites is seen. Impression: No significant abnormalities seen. Reviewed, dictated and finalized at [facility]. ATOLOGY SPECIALIST Impression: No significant abnormalities seen.
[2022-05-09 11:09] VITALS: BP 121/47; PULSE 92; RESP 18; TEMP 36.7; O2SAT 98
--- NOTE | 2022-05-09 12:09 | ED.GENADULT ---
HPI - General Adult General Chief complaint: Neuro Symptoms/Deficit Stated complaint: unable to void or BM s/p spinal procedure Time Seen by Provider: 05/09/22 11:57 Source: RN notes reviewed History of Present Illness HPI narrative: Patient presents emergency department from home for constipation and urinary hesitancy. The patient states that her last bowel movement was 4 days ago on Friday the . She states that she has not had a bowel movement since that time she also states that she is able to urinate but states that she has to push harder to urinate and normally goes more frequently than she has been. She states that she had a spinal stimulator placed by Dr. Oconnor on May 06 she states she is had no urinary incontinence she states that she has chronic numbness in her legs from sciatica but denies any new numbness or weakness of the extremities she had called the office and was told to come to the emergency department for further evaluation she denies any fevers or chills she denies any abdominal pain nausea or vomiting Related Data Home Medications Medication Instructions Recorded Confirmed duloxetine 20 mg capsule,delayed 30 mg PO QAM 10/26/20 04/18/22 release sprinkle tizanidine 4 mg capsule 4 mg PO BID 02/04/22 04/18/22 buspirone 10 mg tablet 10 mg PO BID 02/22/22 04/18/22 Allergies Allergy/AdvReac Type Severity Reaction Status Date / Time tetracycline Allergy Mild Rash Verified 05/09/22 11:35 Sulfa (Sulfonamide AdvReac Unknown Fatigued Verified 05/09/22 11:35 Antibiotics) evolocumab AdvReac LEG Verified 05/09/22 11:35 [From Repatha Pushtronex] CRAMPS, PAIN [place]w-QWC-WwD Reductase AdvReac LEG Verified 05/09/22 11:35 Inhibitor CRAMPS/PAIN [Xufbggw-Vub-Dbi Reductase Inhibitor] Review of Systems Review of Systems: Gen.: Denies fevers or chills ENT: Denies congestion Respiratory: Denies shortness of breath or cough CV: Denies chest pain or palpitations GI: Denies abdominal pain nausea, emesis or diarrhea reports constipation see HPI Musculoskeletal: Denies back pain or muscle pain Neuro: Denies numbness, tingling, weakness or focal weakness Skin: Denies rash Except as documented, all other systems reviewed and negative PMFSH Past Medical History Medical History BMI 29.0-29.9,adult BMI 30.0-30.9,adult Cervical spondylolysis Chronic neck and back pain Chronic obstructive pulmonary disease, unspecified Congestive heart failure, unspecified COVID-19 Crohn's disease, unspecified, without complications Depression with anxiety Diarrhea Diastolic dysfunction Elevated lipids Essential (primary) hypertension GERD without esophagitis Hx pulmonary embolism Hypertrophy of both inferior nasal turbinates Irritable bowel syndrome with diarrhea Lumbar spondylosis Nasal obstruction Nasal septal deviation Overweight (12/13/15) Oxygen dependent Peripheral polyneuropathy Seizures Urinary incontinence Surgical History Surgical History No pertinent past surgical history Family History Family History Sibling Patient's sister is in good health Hypertension Mother Carcinoma of colon Patient's mother is Family history of malignant neoplasm of breast in first degree relative Alzheimer's disease Father Family history of lung cancer Patient's father is Other Cerebrovascular accident Family history of malignant neoplasm Social History Social History Smoking status: Never smoker Second hand tobacco smoke exposure: Yes Alcohol intake: never Substance use: never Substance use type: does not use 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
[2022-05-09 13:05] LABS: Basophils Percent Auto 0.4 % (0.2-1.2); Eosinophils Absolute Auto 0.2 K/mm3 (0-0.3); Eosinophils Percent Auto 2.6 % (0-4.4); Hematocrit 34.3 % (37.0-47.0); Hemoglobin 11.2 g/dL (12.0-15.0); Immature Granulocyte Absolute 0.02 K/mm3 (0.00-0.031); Immature Granulocyte Percent A 0.3 % (0-0.5); Lymphocytes Absolute Auto 1.56 K/mm3 (0.9-3.2); Lymphocytes Percent Auto 21.3 % (18.3-44.2); Mean Corpuscular HGB Conc 32.7 g/dl (32-36); Mean Corpuscular Hemoglobin 31.8 pg (26-34); Mean Corpuscular Volume 97.4 fl (80-100); Mean Platelet Volume 9.4 fl (7.4-10.4); Monocytes Percent Auto 13.6 % (2.6-8.5); Neutrophils Absolute Auto 4.5 K/mm3 (1.3-6.7); Neutrophils Percent Auto 61.8 % (45.5-73.1); Platelet Count Result 231 k/mm3 (150-375); Red Blood Count 3.52 M/mm3 (4.2-5.4); Red Cell Distribution Width 12.3 % (11.5-14.5); White Blood Count 7.3 K/mm3 (4.5-10.0)
[2022-05-09 13:11] LABS: Add Urine Microscopic? NO; Appearance Urine Clear (Clear); Bilirubin Urine Negative (Negative); Blood Urine Negative (Negative); Color Urine Light Yellow (Yellow); Glucose Urine UA Negative (Negative); Ketones Urine Negative (Negative); Leukocyte Esterase Ur Negative LEU/UL (Negative); Nitrate Urine Negative (Negative); Protein Urine Negative (Negative); Specific Grav Ur <= 1.005 (1.001-1.035); Urobilinogen Urine 0.2 mg/dL (<2.0); pH Urine 5.5 (5.0-9.0)
[2022-05-09 13:15] LABS: Alanine Aminotransferase 35 U/L (6-35); Alkaline Phosphatase 65 U/L (38-126); Anion Gap 7 mmol/L (8-16); Aspartate Amino Transferase 45 U/L (14-36); Bilirubin,Total 1.3 mg/dL (0.2-1.3); Blood Urea Nitrogen 19 mg/dL (7-17); Calcium 8.5 mg/dL (8.4-10.2); Carbon Dioxide 27 mmol/L (22-30); Chloride 100 mmol/L (98-107); Estimated CRCL calculation 60 ml/min; Estimated Glomerular Filt Rate > 60; Glucose 96 mg/dL (65-110); Potassium 4.1 mmol/L (3.4-5.0); Sodium 134 mmol/L (137-145)
[2022-05-09 13:49] LABS: Prothrombin Time 13.1 Seconds (11.1-14.7)
[2022-05-09 13:51] LABS: Partial Thromboplastin Time 33.8 SECONDS (22.3-36.8)
--- NOTE | 2022-05-09 16:24 | PCCCNOTE ---
Called by ED charge to assist with transportation, met w/ patient in room H2. She states that she lives at [place], in [place]. She got here today by van but that van shut down at 11am. She does not have any friends or family that can assist with transportation. Has had difficulty with a cab from [employer] before when she only had a certain amount of benitez and they would not accept a debit card. Called to [employer] they estimate 24.50. Advised to patient that the estimate was 24.50$ and but if goes beyond 30 dollars and they do not accept debit then have fact checker cab call [employer]. She is agreeable.
== END 2022-05-09 16:19 | disposition home or self-care (01) ==
PROVIDERS: Emergency Provider Emergency Medicine; PCP Family Medicine
DX: K59.00 Constipation, unspecified (principal); R39.11 Hesitancy of micturition; J44.9 Chronic obstructive pulmonary disease, unspecified; I50.9 Heart failure, unspecified; K50.90 Crohn's disease, unspecified, without complications; I11.0 Hypertensive heart disease with heart failure; E66.3 Overweight; Z68.29 Body mass index [BMI] 29.0-29.9, adult; G62.9 Polyneuropathy, unspecified; F41.8 Other specified anxiety disorders; Z86.16 Personal history of COVID-19; Z86.711 Personal history of pulmonary embolism; Z96.82 Presence of neurostimulator; Z77.22 Contact with and (suspected) exposure to environmental tobacco smoke (acute) (chronic)
CPT/HCPCS: 36415; 74177; 80053; 81003; 85025; 85610; 85730; 99284; Q9967

== ENCOUNTER 2022-11-01 09:11 | Outpatient (CLI) | payer MEDICARE, SELFPAY ==
--- NOTE | ~2022-11-01 | XR_ITS ---
EXAMINATION: XR small bowel follow through DATE: 11/01/2022 10:41 INDICATION: Diarrhea. TECHNIQUE: Oral contrast was administered, and a time course of radiographs of the abdomen was obtain ed. Fluoroscopy of the small bowel was performed. Fluoroscopy exposure time was 0.1 minutes. The tota l number of images was 9. COMPARISON: CT abdomen and pelvis 05/09/2022 FINDINGS: There is no abnormal mass or stricture. No dilated loops of bowel. Transit time from the stomach to p roximal colon was approximately 30 minutes. Electrodes overlie the spine. IMPRESSION: 1. Normal small bowel series. Reviewed, dictated and finalized at location A.
== END 2022-11-01 09:12 | disposition home or self-care (01) ==
PROVIDERS: PCP Internal Medicine; Visit Provider Nurse Practitioner Family
DX: R19.7 Diarrhea, unspecified (principal)
CPT/HCPCS: 74250

== ENCOUNTER 2023-02-13 00:13 | Day surgery (SDC) | payer MEDICARE, SELFPAY ==
[2023-02-13 08:56] VITALS: BP 151/60; PULSE 72; RESP 20; TEMP 35.6; O2SAT 98; BMI 28.8
--- NOTE | 2023-02-13 08:56 | PM.HPGS ---
History of Present Illness History of Present Illness Consent: Risks, benefits, and alternatives have been discussed and questions answered. Patient agrees to proceed with procedure. Chief complaint: dysphagia Narrative: Yessica Evans is a 73 year old female Presents today for for dysphagia. Food will catch in the mid substernal portion the chest. 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 Plan for EGD to assess more thoroughly. Additionally patient notes her diarrhea is improved on trial of Viberzi. She wishes to continue this. She was only taking samples previously. Review of Systems Review of Systems: Review of systems noncontributory. [facility] Past Medical History Medical History BMI 29.0-29.9,adult BMI 30.0-30.9,adult Cervical spondylolysis Chronic neck and back pain Chronic obstructive pulmonary disease, unspecified Congestive heart failure, unspecified COVID-19 Crohn's disease, unspecified, without complications Depression with anxiety Diarrhea Diastolic dysfunction Elevated lipids Essential (primary) hypertension GERD without esophagitis Hx pulmonary embolism Hypertrophy of both inferior nasal turbinates Irritable bowel syndrome with diarrhea Lumbar spondylosis Nasal obstruction Nasal septal deviation Overweight (12/13/15) Oxygen dependent Peripheral polyneuropathy Right upper quadrant pain Seizures Urinary incontinence Surgical History Surgical History No pertinent past surgical history Family History Family History Sibling Patient's sister is in good health Hypertension Mother Carcinoma of colon Patient's mother is Family history of malignant neoplasm of breast in first degree relative Alzheimer's disease Father Family history of lung cancer Patient's father is Other Cerebrovascular accident Family history of malignant neoplasm Social History Social History (Updated 01/09/23 @ 13:10 by Johanna Edmonds MA) Smoking status: Never smoker Second hand tobacco smoke exposure: Yes Alcohol intake: never Substance use: never Substance use type: does not use Lack of Food: Sometimes True Current Housing: I Have Housing Concerned About Future Housing: No Difficulty Paying Gas/Electric Bills: No Difficulty Paying for Meds: No Currently Unemployed: No Education: Associate Degree Difficulty w/ Childcare or Family Care: No Living arrangements: alone Occupation/Education: 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 patient): Female Sexual Orientation (if Verbalized by the Patient): Straight or Heterosexual Spiritual care concerns: No Meds Home Medications and Allergies Home Medications Medication Instructions Recorded Confirmed Type losartan 50 mg tablet 50 mg PO BID #180 tabs 01/23/22 01/30/23 Rx metoprolol succinate 25 mg 12.5 mg PO BID #90 tabs 05/16/22 01/30/23 Rx tablet,extended release 24 hr levetiracetam 500 mg tablet See Rx Instructions .Route 06/27/22 01/30/23 Rx .COMPLEX #180 tabs tramadol 50 mg tablet 50 mg PO Q6H PRN Pain 06/27/22 01/30/23 History dicyclomine 20 mg tablet 20 mg PO TID PRN abdominal 08/12/22 01/30/23 Rx discomfort 3 months #270 tabs buspirone 10 mg tablet 15 mg PO BID 10/16/22 01/30/23 History colestipol 1 gram tablet 1 g PO BID #180 tabs 10/16/22 01/30/23 Rx gabapentin 300 mg capsule 600 mg PO QID 10/16/22 01/30/23 History tizanidine 4 mg capsule 4 mg PO DAILY 01/08/23 01/30/23 History duloxetine 60 mg capsule,delayed 60 mg PO DAILY #30 caps 01/09/23 01/30/23 Rx release (Cymbalta) Allergies Allergy/AdvReac Type Severity Reaction Status Date / Time tetracycline Allergy Mild Rash Verified 01/30/23 14:38 Sulfa (Sul
[2023-02-13] MEDS: LACTATED RINGERS 1,000 ML 150 ML IV CONT (09:08)
[2023-02-13 10:15] VITALS: BP 117/58; PULSE 68; RESP 17; O2SAT 97
[2023-02-13 10:25] VITALS: BP 123/63; PULSE 66; RESP 17; O2SAT 98
[2023-02-13 10:35] VITALS: BP 136/66; PULSE 68; RESP 20; O2SAT 98
== END 2023-02-13 10:44 | disposition home or self-care (01) ==
PROVIDERS: PCP Internal Medicine; Visit Provider Internal Medicine Gastroenterology
PROC: 0DJ08ZZ Inspection of Upper Intestinal Tract, Via Natural or Artificial Opening Endoscopic (ICD-10-PCS; CPT 43235; principal; 2023-02-13 10:15)
DX: R13.10 Dysphagia, unspecified (principal); K58.0 Irritable bowel syndrome with diarrhea; J44.9 Chronic obstructive pulmonary disease, unspecified; I11.0 Hypertensive heart disease with heart failure; I50.9 Heart failure, unspecified; F41.8 Other specified anxiety disorders; E78.5 Hyperlipidemia, unspecified; K21.9 Gastro-esophageal reflux disease without esophagitis; G62.9 Polyneuropathy, unspecified; G40.909 Epilepsy, unspecified, not intractable, without status epilepticus
CPT/HCPCS: 43450; 43235; J2704; J7120

== ENCOUNTER 2023-06-13 09:45 | Emergency (ER) | payer MEDICARE, SELFPAY ==
[2023-06-13] VITALS (7 sets, daily range): BP systolic 113–181; BP diastolic 64–90; PULSE 59–88; RESP 11–16; TEMP 36.6; O2SAT 92–100
--- NOTE | ~2023-06-13 | XR_ITS ---
XR chest 1V portable 06/13/2023 10:29 Indication: Hypertension. Leg swelling. Procedure: AP portable chest Comparison: Comparison to multiple prior studies sequentially, with oldest reviewed study dated 11/02. Findings: Heart size normal. No focal air space disease, pulmonary edema, pleural effusion or suspect ed pneumothorax. Spinal leads are demonstrated overlying the mid thoracic spine. Impression: 1: No acute cardiopulmonary disease. Reviewed, dictated and finalized at location B. TRANSCRIBER Impression: 1: No acute cardiopulmonary disease.
--- NOTE | ~2023-06-13 | US_ITS ---
EXAMINATION:US venous doppler LE RT INDICATION:Leg pain and swelling TECHNIQUE: Multiple grayscale, color flow and Doppler images of the right lower extremity deep venous systems were obtained and reviewed. COMPARISON:No prior studies for comparison. FINDINGS: The common femoral, superficial femoral and popliteal veins demonstrate normal respiratory variation, augmentation and compressibility. Color flow is also seen within the posterior tibial, pe roneal, greater saphenous and profunda veins. IMPRESSION: 1: No lower extremity deep venous thrombosis. Reviewed, dictated and finalized at location B. 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
--- NOTE | 2023-06-13 09:47 | ED.RECABL ---
HPI - Recheck/Abnormal Lab/Rx General Chief Complaint: Recheck/Abnormal Lab/Rx <Chalo Ruiz APRN - Last Filed: 06/13/23 18:24> Stated Complaint: elevated BP, swollen right leg <Chalo Ruiz APRN - Last Filed: 06/13/23 18:24> Time Seen by Provider: 06/13/23 09:46 <Chalo Ruiz APRN - Last Filed: 06/13/23 18:24> Source: patient <Chalo Ruiz APRN - Last Filed: 06/13/23 18:24> Mode of arrival: ambulatory <Chalo Ruiz APRN - Last Filed: 06/13/23 18:24> Limitations: no limitations <Chalo Ruiz APRN - Last Filed: 06/13/23 18:24> History of Present Illness HPI narrative: Yessica is a 73-year-old female patient presenting to the ER today for elevated blood pressure and swollen right leg x1 day. She reports she is having tenderness to palpation over the anterior right lower leg with leg swelling. Area does have slight redness. Blood pressure is 181/78 initially. She denies any chest pain, shortness of breath. Does have dizziness but this is normal for her. History hypertension, COPD, CHF, PE <Chalo Ruiz APRN - Last Filed: 06/13/23 18:24> Related Data Home Medications: Home Medications Medication Instructions Recorded Confirmed tramadol 50 mg tablet 50 mg PO Q6H PRN Pain 06/27/22 06/13/23 buspirone 10 mg tablet 15 mg PO BID 10/16/22 06/13/23 gabapentin 300 mg capsule 600 mg PO QID 10/16/22 06/13/23 tizanidine 4 mg capsule 4 mg PO DAILY 01/08/23 06/13/23 colestipol 1 gram tablet 1 g PO DAILY 03/17/23 06/13/23 duloxetine 60 mg capsule,delayed 30 mg PO DAILY 03/17/23 06/13/23 release (Cymbalta) <Chalo Ruiz APRN - Last Filed: 06/13/23 18:24> Allergies/Adverse Reactions: Allergies Allergy/AdvReac Type Severity Reaction Status Date / Time tetracycline Allergy Mild Rash Verified 06/13/23 10:02 Sulfa (Sulfonamide AdvReac Unknown Fatigued Verified 06/13/23 10:02 Antibiotics) Pqoarkz-ZXO-SpM Reductase AdvReac LEG Verified 06/13/23 10:02 Inhibitor CRAMPS/PAIN [Botwfng-Mjh-Rmj Reductase Inhibitor] <Chalo Ruiz APRN - Last Filed: 06/13/23 18:24> Review of Systems Review of Systems: Pertinent positives per HPI. Patient denies any fever, chills, rash, headache, visual changes, dizziness, cough, runny nose, sore throat, shortness of breath, chest pain, palpitations, nausea, vomiting, diarrhea, constipation, abdominal pain, or any urinary issues. <Chalo Ruiz APRN - Last Filed: 06/13/23 18:24> PMFSH Past Medical History Medical History: Medical History BMI 29.0-29.9,adult BMI 30.0-30.9,adult Cervical spondylolysis Chronic neck and back pain Chronic obstructive pulmonary disease, unspecified Congestive heart failure, unspecified COVID-19 Crohn's disease, unspecified, without complications Depression with anxiety Diarrhea Diastolic dysfunction Elevated lipids Essential (primary) hypertension GERD without esophagitis Hx pulmonary embolism Hypertrophy of both inferior nasal turbinates Irritable bowel syndrome with diarrhea Lumbar spondylosis Nasal obstruction Nasal septal deviation Overweight (12/13/15) Oxygen dependent Peripheral polyneuropathy Right upper quadrant pain Seizures Urinary incontinence <Chalo Ruiz APRN - Last Filed: 06/13/23 18:24> Surgical History Surgical History: Surgical History No pertinent past surgical history <Chalo Ruiz APRN - Last Filed: 06/13/23 18:24> Family History Family History: Family History Sibling Patient's sister is in good health Hypertension Mother Carcinoma of colon Patient's mother is Family history of malignant neoplasm of breast in first degree relative Alzheimer's disease Father
--- NOTE | 2023-06-13 09:59 | ECG_ITS ---
Measurements Intervals [place] Rate: 69 P: 30 NV: 177 QRS: -31 QRSD: 90 T: 24 QT: 407 QTc: 438 Interpretive Statements SINUS RHYTHM LEFT AXIS DEVIATION POSSIBLE LEFT ATRIAL ENLARGEMENT POOR R WAVE PROGRESSION, ANTERIOR LEADS BORDERLINE T WAVE ABNORMALITY- ANTERIOR LEADS BASELINE ARTIFACT- I, III, AVR, AVL, AVF BORDERLINE ECG COMPARED TO ECG 02/26/2021 09:16:56 LEFT-AXIS DEVIATION NOW PRESENT Electronically Signed On 06-13-2023 11:58:43 [employer] by Micky Jimenez D.O.
[2023-06-13 10:20] LABS: Basophils Percent Auto 0.5 % (0.2-1.2); Eosinophils Absolute Auto 0.2 K/mm3 (0-0.3); Eosinophils Percent Auto 3.6 % (0-4.4); Hematocrit 40.4 % (37.0-47.0); Hemoglobin 12.9 g/dL (12.0-15.0); Immature Granulocyte Absolute 0.01 K/mm3 (0.00-0.031); Immature Granulocyte Percent A 0.2 % (0-0.5); Lymphocytes Absolute Auto 1.43 K/mm3 (0.9-3.2); Lymphocytes Percent Auto 24.6 % (18.3-44.2); Mean Corpuscular HGB Conc 31.9 g/dl (32-36); Mean Corpuscular Hemoglobin 31.6 pg (26-34); Mean Platelet Volume 9.7 fl (7.4-10.4); Monocytes Absolute Auto 0.7 K/mm3 (0.1-0.6); Monocytes Percent Auto 11.9 % (2.6-8.5); Neutrophils Absolute Auto 3.5 K/mm3 (1.3-6.7); Neutrophils Percent Auto 59.2 % (45.5-73.1); Platelet Count Result 236 k/mm3 (150-375); Red Blood Count 4.08 M/mm3 (4.2-5.4); Red Cell Distribution Width 11.9 % (11.5-14.5); White Blood Count 5.8 K/mm3 (4.5-10.0)
[2023-06-13 10:31] LABS: INR 0.9; Prothrombin Time 12.8 Seconds (11.1-14.7)
[2023-06-13 10:32] LABS: Partial Thromboplastin Time 27.5 SECONDS (22.3-36.8)
[2023-06-13 10:36] LABS: Alanine Aminotransferase 33 U/L (6-35); Albumin Level 4.3 g/dL (3.5-5.1); Alkaline Phosphatase 67 U/L (38-126); Anion Gap 5 mmol/L (8-16); Aspartate Amino Transferase 44 U/L (14-36); Bilirubin,Total 1.2 mg/dL (0.2-1.3); Blood Urea Nitrogen 14 mg/dL (7-17); Calcium 9.2 mg/dL (8.4-10.2); Carbon Dioxide 28 mmol/L (22-30); Chloride 106 mmol/L (98-107); Estimated CRCL calculation 62 ml/min; Estimated Glomerular Filt Rate > 60; Glucose 97 mg/dL (65-110); Sodium 139 mmol/L (137-145)
[2023-06-13 10:48] LABS: NT Pro B Type Natriuretic Pept 463 pg/mL (19.9-100); Troponin I < 0.012 ng/mL (0.000-0.034)
[2023-06-13 11:42] LABS: Appearance Urine Clear (Clear); Bilirubin Urine Negative (Negative); Blood Urine Negative (Negative); Color Urine Yellow (Yellow); Glucose Urine UA Negative (Negative); Ketones Urine Negative (Negative); Leukocyte Esterase Ur Negative LEU/UL (Negative); Nitrate Urine Negative (Negative); Protein Urine Negative (Negative); Specific Grav Ur 1.007 (1.001-1.035); Urobilinogen Urine 0.2 mg/dL (<2.0)
[2023-06-13 11:45] LABS: Add Urine Microscopic? NO
== END 2023-06-13 13:17 | disposition home or self-care (01) ==
PROVIDERS: Emergency Provider Nurse Practitioner Family; PCP Internal Medicine
DX: L03.115 Cellulitis of right lower limb (principal); I11.0 Hypertensive heart disease with heart failure; I50.9 Heart failure, unspecified; J44.9 Chronic obstructive pulmonary disease, unspecified; K50.90 Crohn's disease, unspecified, without complications; K21.9 Gastro-esophageal reflux disease without esophagitis; E66.3 Overweight; Z68.28 Body mass index [BMI] 28.0-28.9, adult; G62.9 Polyneuropathy, unspecified; R32 Unspecified urinary incontinence; Z86.711 Personal history of pulmonary embolism; Z86.16 Personal history of COVID-19; R94.31 Abnormal electrocardiogram [ECG] [EKG]
CPT/HCPCS: 36415; 71045; 80053; 81003; 83880; 84484; 85025; 85610; 85730; 93005; 93971; 99284

== ENCOUNTER 2023-06-15 18:44 | Emergency (ER) | payer MEDICARE, SELFPAY ==
[2023-06-15 18:58] VITALS: BP 154/55; PULSE 83; RESP 20; TEMP 36.2; O2SAT 98
--- NOTE | 2023-06-15 20:51 | PC.NURSE ---
pt ambulated out of ED and drove of in private vehicle.
== END 2023-06-15 22:22 | disposition left against medical advice (07) ==
LOC: ANHED 21:02
PROVIDERS: PCP Internal Medicine
DX: L53.9 Erythematous condition, unspecified (principal)
CPT/HCPCS: 99199

== ENCOUNTER 2023-12-18 13:16 | Outpatient (CLI) | payer MEDICARE, SELFPAY ==
--- NOTE | ~2023-12-18 | XR_ITS ---
EXAMINATION: XR barium swallow modified DATE: 12/18/2023 13:58 INDICATION: Dysphagia. TECHNIQUE: The patient was given barium-containing material of multiple consistencies to swallow by t he speech pathologist while I performed fluoroscopy. Fluoroscopy exposure time was 1.1 minutes. The n umber of fluoroscopy images saved to the PACS was 1. Dose-area product was 0.768 Gy-cm^2. FINDINGS: The oral stage, pharyngeal stage, and cervical/esophageal stage of the swallow are normal. IMPRESSION: 1. Normal modified barium swallow. 2. Please refer to the speech therapy report for recommendations. Reviewed, dictated and finalized at location A.
--- NOTE | 2023-12-18 15:01 | REHSTMBS ---
Assessment and note entered by Yolanda Pickering, HAND OUTSIDE CUTTER Modified Barium Swallow Evaluation Feeding Type Recommended Oral Food Consistency Regular, Level 7 Liquid Consistency Thin (0) ST Clinical Summary The patient was seated for a lateral view and presented with 5cc of thin liquid barium via a spoon, pudding consistency barium via a spoon, mixed liquid/solid consistency spoon, a cracker coated with barium pudding via spoon, and an uncontrolled thin liquid barium bolus. This was presented via a straw & cup. Oral preparatory and oral phase symptoms: none. Pharyngeal phase symptoms: very shallow (flash/quickly ejected) laryngeal penetration with mixed consistency solids via a spoon. Esophageal stage symptoms: none. No aspiration occurred. Impressions: Overall, the patient presents with functional swallow ability throughout all stages of the swallow; however, laryngeal penetration was exhibited intermittently during trial of liquid/ solids mix consistency. It appeared to clear without aspiration.
== END 2023-12-18 13:17 | disposition home or self-care (01) ==
PROVIDERS: PCP Internal Medicine; Visit Provider Nurse Practitioner Family
DX: R13.10 Dysphagia, unspecified (principal)
CPT/HCPCS: 92611

== ENCOUNTER 2024-07-29 10:27 | Outpatient (CLI) | payer MEDICARE, SELFPAY ==
--- NOTE | ~2024-07-29 | CT_ITS ---
EXAMINATION: CT lumbar spine wo con DATE: 07/29/2024 10:49 INDICATION: Intervertebral disc disorders with radiculopathy. TECHNIQUE: Computed tomography (CT) of the lumbar spine was performed without intravenous contrast. A utomated exposure control and iterative reconstruction technique were employed. The dose-length produ ct was 740.26 mGy-cm. COMPARISON: Lumbar spine CT 09/16/2016 FINDINGS: There is 4 mm retrolisthesis of L5 on S1. Vertebral body heights are normal. There is mildl y decreased disc height at L1-L2 and L2-L3 and severely decreased disc height at L5-S1. The following disc levels are specifically discussed: L1-L2: The disc is bulging. There is mild bilateral facet joint osteoarthritis. There is mild bilater al neural foraminal stenosis. There is mild central canal stenosis. L2-L3: The disc is bulging. There is mild bilateral facet joint osteoarthritis. There is mild bilater al neural foraminal stenosis. There is mild central canal stenosis. L3-L4: The disc is bulging. There is moderate bilateral facet joint osteoarthritis. There is mild maldonado ateral neural foraminal stenosis. There is mild central canal stenosis. L4-L5: The disc is bulging. There is moderate bilateral facet joint osteoarthritis. There is mild maldonado ateral neural foraminal stenosis. There is mild central canal stenosis. L5-S1: The disc is bulging with superimposed central extrusion. There is severe bilateral facet joint osteoarthritis. There is moderate right and mild left neural foraminal stenosis. There is mild centr al canal stenosis. There is moderate stenosis of right S1 neural foramen. IMPRESSION: 1. Severe lower lumbar spondylosis. Reviewed, dictated and finalized at location B.
== END 2024-07-29 10:28 | disposition home or self-care (01) ==
LOC: MICIMG 10:29
PROVIDERS: PCP Neurological Surgery; Visit Provider Neurological Surgery
DX: M47.816 Spondylosis without myelopathy or radiculopathy, lumbar region (principal)
CPT/HCPCS: 72131

== ENCOUNTER 2024-10-25 14:06 | Emergency (ER) | payer MEDICARE, SELFPAY ==
[2024-10-25 14:17] VITALS: BP 140/67; PULSE 76; RESP 16; TEMP 36.2; O2SAT 97
[2024-10-25 14:27] LABS: EDUAAPPEAR Clear; EDUABILI Negative (Negative); EDUABLOOD Negative (Negative); EDUACOLOR1 Yellow; EDUAGLUCOSE Negative (Negative); EDUAKETONE Negative (Negative); EDUALEUKO Negative (Negative); EDUANITRATE Negative (Negative); EDUAPROTEIN Negative (Negative); EDUAUROBILI 0.2
--- NOTE | 2024-10-25 18:25 | ED.FEMALEGU ---
HPI - Female Genitourinary General Chief complaint: Urogenital-Female Stated complaint: Uti Symptoms Time Seen by Provider: 10/25/24 14:31 Source: patient and RN notes reviewed Mode of arrival: ambulatory Limitations: no limitations History of Present Illness HPI Narrative: Patient presents today complaining of a 2 week history of dysuria and intermittent incontinence, both which can be baseline for patient. She also reports a 2 day history of urinary urgency. Denies fever, abdominal or back pain. No [id number]-[id number] treatment prior to arrival. States she does have an appointment with Urology in a few days. Related Data Home Medications ?Medication ?Instructions ?Recorded ?Confirmed ?Last Taken ?Type tramadol 50 mg tablet 50 mg PO Q6H PRN Pain 06/27/22 06/14/24 02/12/23 History gabapentin 300 mg capsule 600 mg PO QID 10/16/22 06/14/24 02/13/23 07:00 History tizanidine 4 mg capsule 4 mg PO DAILY 01/08/23 06/14/24 02/12/23 History buspirone 15 mg tablet 15 mg PO BID 07/14/24 Unknown History duloxetine 30 mg capsule,delayed 30 mg PO DAILY 10/14/24 Unknown History release levetiracetam 750 mg tablet 750 mg PO Q12H 10/14/24 Unknown History metoprolol succinate 25 mg 25 mg PO BID 10/14/24 Unknown History tablet,extended release 24 hr Allergies Allergy/AdvReac Type Severity Reaction Status Date / Time tetracycline Allergy Mild Rash Verified 10/14/24 13:44 Sulfa (Sulfonamide AdvReac Unknown Fatigued Verified 10/14/24 13:44 Antibiotics) Vwpmiad-LQB-VsB Reductase AdvReac LEG Verified 10/14/24 13:44 Inhibitor (Vlpgdbc-Ion-Gsa CRAMPS/PAIN Reductase Inhibitor) Review of Systems Review of Systems: CONSTITUTIONAL: Denies body aches, fever, chills, or sweats. EYES: Denies visual changes, redness, or discharge. ENT: Denies rhinorrhea, congestion, sore throat, or otalgia. CARDIOVASCULAR: Denies chest pain, palpitations, or edema. RESPIRATORY: Denies cough or dyspnea. GASTROINTESTINAL: Denies abdominal pain, nausea, vomiting, or diarrhea. GENITOURINARY: Dysuria, incontinence, urgency SKIN: Denies rash, itching, or wounds. MUSCULOSKELETAL: Denies back pain, joint pain, or myalgia. NEUROLOGIC: Denies headache, numbness, tingling, or weakness. PSYCH: Denies depression or anxiety. [facility] Past Medical History Medical History Right upper quadrant pain Diarrhea BMI 29.0-29.9,adult COVID-19 BMI 30.0-30.9,adult Congestive heart failure, unspecified Chronic obstructive pulmonary disease, unspecified Crohn's disease, unspecified, without complications Overweight (12/13/15) Oxygen dependent Hypertrophy of both inferior nasal turbinates Nasal septal deviation Nasal obstruction Irritable bowel syndrome with diarrhea Urinary incontinence Diastolic dysfunction Chronic neck and back pain Essential (primary) hypertension Depression with anxiety Hx pulmonary embolism Cervical spondylolysis Lumbar spondylosis Peripheral polyneuropathy Seizures GERD without esophagitis Elevated lipids Surgical History Surgical History No pertinent past surgical history Family History Family History Sibling Patient's sister is in good health Hypertension Mother Carcinoma of colon Patient's mother is Family history of malignant neoplasm of breast in first degree relative Alzheimer's disease Father Family history of lung cancer Patient's father is Other Cerebrovascular accident Family history of malignant neoplasm Social History Social History Smoking status: Never smoker Second hand tobacco smoke exposure: Yes Alcohol intake: never Substance use: never Substance use type: does not use Lack of Transportation: No Lack of Food: Sometimes True Current Housing: I Have Housing Concerned About Future Housing: No Difficulty Paying Gas/Electric Bills: No Difficulty Paying for Meds: No Currently Unemployed: No Education: Associate Degree Difficulty w/ Childcare or Family Care: No Living arrangements: alone Occupation/Education: 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 Please see nursing chart for further information. There is no relevant family history pertinent to the presenting complaint Exam Narrative: GENERAL: Well-appearing, well-nourished, and in no acute distress. HEAD: Normocephalic, atraumatic. EYES: EOMI. No redness or drainage. Conjunctivae normal. ENT: Mucous membranes pink and moist. NECK: Normal AROM. CHEST: No respiratory distress. Clear to auscultation. HEART: Regular rate and rhythm. No murmur appreciated. ABDOMEN: Soft, nontender, nondistended, normal active bowel sounds. EXTREMITIES: Normal range of motion. No edema. SKIN: Warm, dry, no rash. Capillary refill normal. Normal skin turgor. NEURO: No focal deficits. Alert and oriented x3. Gait steady. PSYCH: Normal affect. No signs of depression or anxiety. Course Course Level of Care: Express Care Visit Vital Signs Vital signs: Vital Signs Temperature 97.2 F L 10/25/24 14:17 Pulse Rate 76 10/25/24 14:17 Respiratory Rate 16 10/25/24 14:17 Blood Pressure 140/67 10/25/24 14:17 Pulse Oximetry 97 10/25/24 14:17 Temperature 97.2 F L 10/25/24 14:17 Pulse Rate 76 10/25/24 14:17 Respiratory Rate 16 10/25/24 14:17 Blood Pressure 140/67 10/25/24 14:17 Pulse Oximetry 97 10/25/24 14:17 Review MDM - Female Genitourinary MDM Narrative Medical decision making narrative: Urinalysis is negative for infection. Culture pending. Anticipatory guidance given Differential Diagnosis Differential diagnosis: Likely urinary tract infection, cystitis and other (Pyelonephritis, atrophic vaginitis) Lab Data Attestation: I reviewed the patient's lab results. Labs: Lab Results 10/25/24 Range/Units 14:25 POC Urine Color Yellow POC Urine Clarity Clear POC Urine pH 6.0 POC Ur Specif [place] 1.010 POC Urine Protein Negative (Negative) POC Ur Glucose (UA) Negative (Negative) POC Urine Ketones Negative (Negative) POC Urine Blood Negative (Negative) POC Urine Nitrite Negative (Negative) POC Urine Bilirubin Negative (Negative) POC Urine Urobilinogen 0.2 POC U Leukocyte Esteras Negative (Negative) Critical Care Time Critical Care Time Critical Care Time: No Discharge Plan Discharge Clinical Impression: Dysuria Patient Disposition: Home Condition: Stable Instructions: Dysuria (ED) Additional Instructions: Your urinalysis is negative for infection today. You will be notified in a few days if the your urine culture comes back positive for infection. In the meantime, please drink plenty of water. You may take some azo to help with your burning. Go to the ER immediately if you develop worsening symptoms such as fever, severe abdominal pain, back pain, nausea or vomiting, sweats or chills. Your blood pressure was elevated above 120/80 today at Urgent Care. This puts you above the threshold for follow up. Please schedule a followup visit with your personal physician as soon as possible, for further evaluation and treatment. Even blood pressure exceeding 120/80 may indicate pre-hypertension. Patient Language: American Prescriptions: No Action losartan 50 mg tablet 50 mg PO BID Qty: 180 3RF tramadol 50 mg tablet 50 mg PO Q6H PRN (Reason: Pain) Patient Comments: Has not been taking lately gabapentin 300 mg capsule 600 mg PO QID Rx Instructions: TAKE 2 CAPSULES BY MOUTH 3 TIMES DAILY metoprolol succinate 25 mg tablet extended release 24 hr 25 mg PO BID buspirone 15 mg tablet 15 mg PO BID duloxetine 30 mg capsule,delayed release(DR/EC) 30 mg PO DAILY levetiracetam 750 mg tablet 750 mg PO Q12H tizanidine 4 mg capsule 4 mg PO DAILY colestipol 1 gram tablet See Rx Instructions .ROUTE .COMPLEX Qty: 180 12RF Dose Instruction: TAKE 1 TABLET TWICE A DAY Rx Instructions: TAKE 1 TABLET TWICE A DAY Follow-up/Referrals: PHYSICIAN,INDUSTRIAL HYGIENIST [Primary Care Provider] - Time of Disposition: 14:46
== END 2024-10-25 14:55 | disposition home or self-care (01) ==
PROVIDERS: Emergency Provider Nurse Practitioner
DX: R30.0 Dysuria (principal); J44.9 Chronic obstructive pulmonary disease, unspecified; K50.90 Crohn's disease, unspecified, without complications; Z99.81 Dependence on supplemental oxygen; I11.0 Hypertensive heart disease with heart failure; I50.9 Heart failure, unspecified; Z86.711 Personal history of pulmonary embolism; G62.9 Polyneuropathy, unspecified; G40.909 Epilepsy, unspecified, not intractable, without status epilepticus; K21.9 Gastro-esophageal reflux disease without esophagitis; F41.8 Other specified anxiety disorders
CPT/HCPCS: 81003; 87086; 99213; G0463